=== PATIENT | male | born 1980 ===

== ENCOUNTER 2017-12-15 12:20 | Emergency (ER) | payer BC ==
--- NOTE | 2017-12-15 12:55 | UC ---
Respiratory Complaint HPI - HPI Summary HPI Summary: 37 yo male presents with cough for the past 2 weeks. 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 His cough is mostly dry, but is productive intermittently. When he takes a deep breath or coughs he noticed pain in his left lower lung. He has not taken anything OTC. Denies fever, chills, SOB, chest pain, abdominal pain, n /v/d/c. - History of Current Complaint Chief Complaint: UCRespiratory Stated Complaint: URI Time Seen by Provider: 12/15/17 12:55 Hx Obtained From: Patient Severity Initially: Mild Severity Currently: Mild Pain Intensity: 2 Pain Scale Used: 0-10 Numeric Character: Cough: Nonproductive - Allergies/Home Medications Allergies/Adverse Reactions: Allergies Allergy/AdvReac Type Severity Reaction Status Date / Time No Known Allergies Allergy Verified 12/15/17 12:53 PMH/Surg Hx/FS Hx/Imm Hx - Additional Past Medical History Additional PMH: None - Surgical History Surgical History: None - Family History Known Family History: Positive: None - Social History Occupation: Employed Full-time Lives: With Family Alcohol Use: Weekly Substance Use Type: None Smoking Status (MU): Never Smoked Tobacco Review of Systems Constitutional: Negative Skin: Negative Eyes: Negative ENT: Negative Respiratory: Cough Cardiovascular: Negative Gastrointestinal: Negative Neurovascular: Negative Neurological: Negative Psychological: Negative All Other Systems Reviewed And Are Negative: Yes Physical Exam - Summary Physical Exam Summary: GENERAL: NAD. WDWN. No pain distress. SKIN: No rashes, sores, lesions, or open wounds. HEENT: Head: AT/NC Eyes: Conjunctiva clear without inflammation or discharge. Ears: Hearing grossly normal. TMs intact, no bulging, erythema, or edema. Nose: Nasal mucosa pink and moist. NTTP maxillary and frontal sinus. Throat: Posterior oropharynx without exudates, erythema, or tonsillar enlargement. Uvula midline. NECK: Supple. Nontender. No lymphadenopathy. CHEST: Mild wheezing throughout with rubs in left upper lobe. No accessory muscle use. Breathing comfortably and in no distress. CV: RRR. Without m/r/g. Pulses intact. Cap refill <2seconds NEURO: Alert. PSYCH: Age appropriate behavior. Triage Information Reviewed: Yes Vital Signs: Initial Vital Signs Temp 98.4 F 12/15/17 12:49 Pulse 112 12/15/17 12:49 Resp 18 12/15/17 12:49 BP 142/102 12/15/17 12:49 Pulse Ox 99 12/15/17 12:49 Vital Signs Reviewed: Yes Diagnostic Evaluation - Laboratory O2 Sat by Pulse Oximetry: 99 Respiratory Course/Dx - Course Course Of Treatment: XR: IMPRESSION: #. The constellation of findings is most consistent with bronchopneumonia given the provided clinical context. Radiographic follow-up after therapy suggested to assess for resolution. Pt was given a duoneb treatment while in the clinic with good results. He reported easier work of breathing and feeling like he could take a deeper breath s/p. CXR results were discussed with pt. Will place him on Levaquin and albuterol inhaler and have him f/u with his PCP or [facility] in 4-6 weeks to ensure PNA resolution. - Differential Dx/Diagnosis Provider Diagnoses: Pneumonia Discharge - Sign-Out/Discharge Documenting (check all that apply): Patient Departure All imaging exams completed and their final reports reviewed: Yes - Discharge Plan Condition: Stable Disposition: HOME Prescriptions: Albuterol HFA INHALER* [Ventolin HFA Inhaler*] 1 puff INH Q6H PRN #1 mdi PRN Reason: Sob/Wheezing Levofloxacin TAB* [Levaquin TAB*] 750 mg PO DAILY #5 tab Patient Education Materials: Pneumonia (ED) Forms: *Work Release Referrals: No Primary Care Phys,NOPCP [Primary Care Provider] - [facility] [place]] [facility] [Outside] Additional Instructions: If you develop a fever, shortness of breath, chest pain, new or worsening symptoms - please call your PCP or go to the ED. Your blood pressure was high at todays visit. Please see your primary provider within 4 weeks for recheck and re-evaluation. 1) Please schedule a follow up with your PCP in 4 weeks to ensure resolution of pneumonia - Billing Disposition and Condition Condition: STABLE Disposition: Home - Attestation Statements Provider Attestation: Per institutional requirements, I have reviewed the chart, however, I was not consulted specifically or made aware of this patient by the midlevel provider. I did not personally evaluate, interact with , or disposition this patient.
[2017-12-15] MEDS ORDERED: Albuterol/Ipratropium NEB.SOL* Albuterol 2.5 MG/Ipratropium 0.5 MG 3 ML INH ONE (13:01)
--- NOTE | 2017-12-15 13:21 | RAD ---
INDICATION: 2 weeks cough. Chest pain. Upper respiratory infection. COMPARISON: No relevant prior exams available on the [facility] for comparison. TECHNIQUE: Dual energy PA and routine lateral views of the chest were obtained. REPORT: Patchy bilateral alveolar consolidation. Suggestion of solitary small calcified granulomas at the upper lung zones. Negative for pleural effusion or pneumothorax. Mediastinum mild thoracic degenerative spondylosis. IMPRESSION: #. The constellation of findings is most consistent with bronchopneumonia given the provided clinical context. Radiographic follow-up after therapy suggested to assess for resolution.
== END 2017-12-15 13:46 | disposition home or self-care (01) ==
LOC: UCEAST 12:20
DX: J18.9 Pneumonia, unspecified organism (principal)
CPT/HCPCS: 71046; 99202; A9270-GY; G0463